=== PATIENT | female | born 1975 | race Caucasian/White ===

== ENCOUNTER 2018-10-12 19:43 | Emergency (ER) | payer OTHER ==
[~2018-10-12] VITALS: Ht 157.5 cm; Wt 41.8 kg
[2018-10-12] MEDS ORDERED: KETOROLAC TROMETHAMINE 30 MG/ML VIAL IM ONE (21:30)
[2018-10-12] MEDS ORDERED: DEXAMETHASONE 4 MG TABLET PO ONE (21:30)
[2018-10-12] MEDS ORDERED: HYDROCODONE/ACETAMINOPHEN 5-325 MG TABLET PO ONE (21:30)
[2018-10-12 22:47] VITALS: BP 96/60
== END 2018-10-12 22:51 | disposition home or self-care (01) ==
LOC: EMS 19:43
DX: M54.42 Lumbago with sciatica, left side (principal)
CPT/HCPCS: 81002; 81025; 96372; 99283; J1885; J8540